=== PATIENT | female | born 1970 | race Caucasian/White ===

== ENCOUNTER 2019-10-08 11:15 | Emergency (ER) | payer SELFPAY ==
[~2019-10-08] VITALS: Ht 157.5 cm; Wt 84.4 kg
[2019-10-08 11:16] VITALS: Ht 157.5 cm; Wt 84.4 kg
[2019-10-08 12:56] VITALS: BP 153/73
== END 2019-10-08 12:56 | disposition home or self-care (01) ==
LOC: ED 11:15
DX: R06.00 Dyspnea, unspecified (principal)
CPT/HCPCS: Q0092